=== PATIENT | male | born 1985 | race African-American/Black ===

== ENCOUNTER → 2016-06-30 | Outpatient (REF) ==
[~2016-06-30] MED LIST: AMBIEN 10MG10 MG PO; ASPIRIN 81M81 MG/TA2 PO; ATIVAN 0.50.5 MG/TAB PO; INVEGA3 MG PO; MINIPRESS 1M1 MG/CAP PO; REXULTI3 MG PO; WELLBUTRIN XL150 MG PO
== END ==
LOC: WSOH 10:42
DX: Z02.89 Encounter for other administrative examinations (principal)

== ENCOUNTER → 2016-08-05 | Outpatient (REF) | LOC: WSOH 13:49 | DX: Z01.83 Encounter for blood typing (principal) ==

== ENCOUNTER 2016-08-11 12:31 | Emergency (ER) | payer MEDICAID, OTHER ==
[~2016-08-11] VITALS: Ht 188 cm; Wt 111.4 kg
[~2016-08-11 12:31] MED LIST changes: -AMBIEN 10MG10 MG PO; -INVEGA3 MG PO; -MINIPRESS 1M1 MG/CAP PO; -REXULTI3 MG PO; -WELLBUTRIN XL150 MG PO
[2016-08-11 12:32] VITALS: TEMP 97.2
[2016-08-11] MEDS ORDERED: AMBIEN 10MG10 MG PO (12:35)
[2016-08-11] MEDS ORDERED: MINIPRESS 1M1 MG/CAP PO (12:35)
[2016-08-11] MEDS ORDERED: WELLBUTRIN XL150 MG PO (12:36)
[2016-08-11] MEDS ORDERED: REXULTI3 MG PO (12:36)
[2016-08-11] MEDS ORDERED: INVEGA3 MG PO (12:36)
[2016-08-11 13:27] VITALS: BP 141/109; PULSE 79
[2016-08-11 13:36] LABS: BASO % 0.3 % (0.0-2.0); EOS # 0.1 (0.0-0.7); EOS % 1.3 % (0-4.0); GRAN # 2.7 (1.4-6.5); GRAN % 44.2 % (42.2-75.2); HEMATOCRIT 43.5 % (42.0-52.0); LYMPH # 2.7 (1.2-3.4); MEAN CELL VOLUME 89 fl (80.0-100.0); MEAN CORPUSCULAR HEMOGLOBIN 31 pg (27.0-31.0); MEAN CORPUSCULAR HGB CONC 35 g/dl (33.0-37.0); MEAN PLATELET VOLUME 9.8 fl (7.4-10.4); MONO # 0.5 (0.1-0.6); PLATELET COUNT 328 K/mm3 (130-400); RED BLOOD COUNT 4.89 M/mm3 (4.20-5.60); REDCELL DISTRIBUTION WIDTH-CV 11.6 % (11.5-14.5)
[2016-08-11 13:42] LABS: ADJUSTED CALCIUM 9.6 mg/dL (8.4-10.2); ALBUMIN 4.6 gm/dL (3.5-5.0); BILIRUBIN,TOTAL 0.8 mg/dL (0.0-1.0); CALCIUM 10.1 mg/dL (8.4-10.2); CREATININE, serum 1.01 mg/dL (0.66-1.25); POTASSIUM 4.1 mmol/L (3.4-5.0)
== END 2016-08-11 14:28 | disposition home or self-care (01) ==
LOC: COL.ER 12:31
PROVIDERS: Physician Assistant Medical
DX: R42 Dizziness and giddiness (principal)

== ENCOUNTER 2017-02-07 14:30 | Outpatient (RCR) | payer MEDICAID ==
[~2017-02-07 14:30] MED LIST changes: +AMBIEN 10MG10 MG PO; +INVEGA3 MG PO; +MINIPRESS 1M1 MG/CAP PO; +REXULTI3 MG PO; +WELLBUTRIN XL150 MG PO
== END 2017-03-08 ==
LOC: MKS.ESL.PT
DX: S93.401A Sprain of unspecified ligament of right ankle, initial encounter (principal); M25.562 Pain in left knee

== ENCOUNTER 2017-07-18 16:23 | Outpatient (RCR) | payer MEDICAID | END 2017-07-25 13:24 | disposition home or self-care (01) | LOC: WSPT 16:23 | DX: Z47.89 Encounter for other orthopedic aftercare (principal); Z98.890 Other specified postprocedural states ==

== ENCOUNTER 2017-09-11 15:45 | Outpatient (RCR) | payer MEDICAID ==
[2017-10-04] MEDS ORDERED: PEN-VEE K500 MG PO (13:30)
== END 2017-10-10 08:04 | disposition home or self-care (01) ==
LOC: WSPT 15:45
DX: Z47.1 Aftercare following joint replacement surgery (principal); Z96.652 Presence of left artificial knee joint

== ENCOUNTER 2017-10-04 12:09 | Emergency (ER) | payer MEDICAID ==
[~2017-10-04] VITALS: Ht 182.9 cm; Wt 122.7 kg
[2017-10-04 12:14] VITALS: BP 132/75; PULSE 89; TEMP 98.8
[2017-10-04] MEDS ORDERED: PEN-VEE K500 MG PO (13:30)
== END 2017-10-04 13:36 | disposition home or self-care (01) ==
LOC: COL.ER 12:09
DX: J02.9 Acute pharyngitis, unspecified (principal); F41.9 Anxiety disorder, unspecified; Z79.82 Long term (current) use of aspirin

== ENCOUNTER 2018-10-26 21:27 | Emergency (ER) | payer MEDICAID ==
[~2018-10-26] VITALS: Ht 185.4 cm; Wt 117.7 kg
[~2018-10-26 21:27] MED LIST changes: +PEN-VEE K500 MG PO
[2018-10-26 21:41] VITALS: BP 140/109; TEMP 98.1
[2018-10-26] MEDS ORDERED: PRIL40 PO ×2 (22:28→23:03)
[2018-10-26] MEDS ORDERED: ERGOCALCIFER50000 IU PO (22:29)
[2018-10-26] MEDS ORDERED: ATIVAN 1MG T1 MG/TAB PO (22:29)
[2018-10-26] MEDS ORDERED: ULTRAM 50MG TAB50 MG PO (22:29)
[2018-10-26] MEDS ORDERED: AMBIEN CR 12.12.5 MG PO (22:29)
[2018-10-26] MEDS ORDERED: CARAFATE 1GM1 G PO (23:05)
[2018-10-26 23:06] LABS: BASO % 0.3 % (0.0-2.0); EOS # 0.1 (0.0-0.7); EOS % 0.8 % (0-4.0); GRAN # 2.5 (1.4-6.5); GRAN % 41.5 % (42.2-75.2); HEMOGLOBIN 13.8 g/dl (13.5-18.0); LYMPH # 2.9 (1.2-3.4); LYMPH % 48.4 % (20.0-51.0); MEAN CELL VOLUME 91 fl (80.0-100.0); MEAN CORPUSCULAR HEMOGLOBIN 31 pg (27.0-31.0); MEAN CORPUSCULAR HGB CONC 34 g/dl (33.0-37.0); MEAN PLATELET VOLUME 9.6 fl (7.4-10.4); MONO # 0.5 (0.1-0.6); MONO % 8.8 % (1.7-9.3); PLATELET COUNT 272 K/mm3 (130-400); RED BLOOD COUNT 4.51 M/mm3 (4.20-5.60); REDCELL DISTRIBUTION WIDTH-CV 11.7 % (11.5-14.5)
[2018-10-26 23:18] LABS: ALBUMIN 4.5 gm/dL (3.5-5.0); BILIRUBIN,TOTAL 0.7 mg/dL (0.0-1.0); C-REACTIVE PROTEIN 1.1 mg/dL (0.0-0.9); CALCIUM 10.1 mg/dL (8.4-10.2); CREATININE, serum 1.23 (0.66-1.25); POTASSIUM 3.9 mmol/L (3.4-5.0); TOTAL PROTEIN 8.2 gm/dL (6.4-8.2)
[2018-10-26 23:40] LABS: COLLECTION METHOD CLEAN CATCH
[2018-10-26 23:49] LABS: MUCOUS Present /lpf; PH 6 (5-8); SQUAMOUS EPITHELIAL None Seen /hpf; URINE APPEARANCE Clear; URINE BACTERIA None Seen /hpf; URINE BILIRUBIN Negative (NEGATIVE); URINE BLOOD Negative (NEGATIVE); URINE COLOR Yellow; URINE GLUCOSE Negative (NEGATIVE); URINE KETONE Negative (NEGATIVE); URINE LEUKOCYTE ESTERASE Negative (NEGATIVE); URINE NITRATE Negative (NEGATIVE); URINE PROTEIN(semi-quant) Negative (NEGATIVE); URINE RBC 0-2 /hpf; URINE UROBILINOGEN Negative (NEGATIVE)
[2018-10-27 00:35] VITALS: PULSE 54
== END 2018-10-27 00:35 | disposition home or self-care (01) ==
LOC: COL.ER 21:27
PROVIDERS: Emergency Medicine
DX: R10.13 Epigastric pain (principal)

== ENCOUNTER → 2018-12-31 | Outpatient (CLI) | payer MEDICAID ==
[~2018-12-31] MED LIST changes: +AMBIEN CR 12.12.5 MG PO; +ATIVAN 1MG T1 MG/TAB PO; +CARAFATE 1GM1 G PO; +ERGOCALCIFER50000 IU PO; +PRIL40 PO; +ULTRAM 50MG TAB50 MG PO
== END ==
LOC: COL.RAD 08:15
DX: K76.0 Fatty (change of) liver, not elsewhere classified (principal)